=== PATIENT | female | born 1970 | race Caucasian/White ===

== ENCOUNTER → 2017-03-19 | Outpatient (CLI) | payer BC ==
[2014-05-14 11:39] VITALS: BP 146/73
[~2017-03-19] MED LIST: HYDR-2758 PO; LEVO50TA5 PO
--- NOTE | 2017-03-19 12:12 | RAD ---
DATE: 03/19/2017 EXAM: DIGITAL SCREEN BILAT W/CAD HISTORY: Screening COMPARISON: One year earlier This study was interpreted with the benefit of Computerized Aided Detection (CAD). FINDINGS: Breast Density: FATTY The Breast Parenchyma is primarily fatty replaced. Breast parenchyma level density A.. There has not been a significant change in the appearance of the breasts. Occasional intramammary lymph nodes are noted similar to an examination 01/20/2013. IMPRESSION: Benign findings BI-RADS CATEGORY: 2 BENIGN FINDING(S) RECOMMENDED FOLLOW-UP: 12M 12 MONTH FOLLOW-UP PQRS compliance statement: Patient information was entered into a reminder system with a target due date 03/19/2018 for the next mammogram. Mammography is a sensitive method for finding small breast cancers, but it does not detect them all and is not a substitute for careful clinical examination. A negative mammogram does not negate a clinically suspicious finding and should not result in delay in biopsying a clinically suspicious abnormality. "Our facility is accredited by the [employer] Mammography Program."
== END | disposition home or self-care (01) ==
LOC: MAMMO 10:00
PROVIDERS: ATTEND Internal Medicine
DX: Z12.31 Encounter for screening mammogram for malignant neoplasm of breast (principal)
CPT/HCPCS: G0202; 77067

== ENCOUNTER → 2017-06-11 | Day surgery (SDC) | payer BC ==
[~2017-06-11] MED LIST changes: +ATOR40TA59 PO; +HYDR12.58 PO; +HYDROmorphone 2 MG/ML VIAL IV PRN; +IV RINGERS,LACTATED 1000ML 1,000 ML IV SCH; +LIDOCAINE 1% PF 2 ML VIAL. ID PRN; +LIDOCAINE 2% PF Vial for OR 5 ML VIAL. ONE; +LISI10TA2 PO; +METF500T4 PO; +MIDAZOLAM HCL/PF 2 MG/2 ML VIAL. IV PRN; +MORPHINE SULFATE 2 MG/ML DISP.SYRIN. IV PRN; +ONDANSETRON PF 4 MG/2 ML VIAL. IV PRN; +PROCHLORPERAZINE 10 MG/2 ML VIAL. IV PRN; +PROPOFOL 20 ML IV ONE; +fentaNYL PF VIAL 100 MCG/2 ML VIAL IV PRN
--- NOTE | 2017-06-11 10:42 | PDOC1 ---
HISTORY & PHYSICAL H&P Fauzia RomeroMason 1970 06/03/2017 10:00 AM 08/30 [facility], [facility] OUR PATIENTS COME FIRST [address] [place] [address] Ph. [phone] Patient: Fauzia Romero Date of : 1970 Date: 06/03/2017 10:00 AM Visit Type: Consult This 46 year old female presents for Hemorrhoids. History of Present Illness: 1. Hemorrhoids Location is deep. The patient describes it as aching and burning. There are no aggravating factors. There are no relieving factors. Additional information : Patient has been having significant rectal pain and rectal bleeding. Has been having bleeding for a while. Had hemorrhoid surgery many years ago.. INTAKE COMMENTS: Intake Comments: Nurse Note: the pt is here today with complaints of severe bleeding hemorrhoids. The pt states that she has had to have them surgically removed around 15 years ago. PROBLEM LIST: Problem Description Onset Date Chronic Notes Hypothyroidism 06/11/2014 N Hypothyroidism (acquired) 04/08/2016 Morbid obesity with BMI of 40.0-44.9, adult 04/08/2016 Pure hypercholesterolemia 04/08/2016 PAST MEDICAL/SURGICAL HISTORY (Detailed) Disease/disorder Onset Date Management Date Comments Hysterectomy, vaginal Bilateral tubal ligation Diabetes type 2 Hyperlipidemia Hypertension Thyroid disease Medications (Active): Started Medication Directions Instruction Stopped 04/19/2017 atorvastatin 40 mg tablet take 1 tablet by oral route every day 04/19/2017 hydrochlorothiazide 25 mg tablet take 1 tablet by oral route every day new dose 05/21/2017 levothyroxine 75 mcg tablet take 1 tablet by oral route every day does not need this yet 06/03/2017 lidocaine 5 % topical ointment apply 1 by Rectal route apply to rectum twice a day 04/19/2017 lisinopril 10 mg tablet take 1 tablet by oral route every day 05/21/2017 metformin 500 mg tablet take 1 tablet by oral route 2 times every day with morning and evening meals new sig as of 05/21/17. does not need this yet Allergies: Ingredient Reaction Medication Name Comment NO KNOWN DRUG ALLERGIES REVIEW OF SYSTEMS System Neg/Pos Details Constitutional Negative Chills, fever, malaise and weight loss. ENMT Negative Sore throat. Eyes Negative Double vision. Respiratory Negative Dyspnea and wheezing. Cardio Negative Chest pain and irregular heartbeat/palpitations. GI Positive See HPI. GI Negative See HPI. Negative Dysuria and hematuria. Endocrine Negative Cold intolerance and heat intolerance. Psych Negative Anxiety. Integumentary Negative Hives and rash. MS Negative Joint pain. Samm/Lymph Negative Easy bleeding and easy bruising. Allergic/Immuno Negative Food allergies. VITAL SIGNS Time BP mm/Hg Pulse /min Resp /min Temp F Ht ft Ht in Ht cm Wt lb Wt kg BMI kg/ m2 BSA m2 O2 Sat% 9:58 AM 146/86 108 0.0 64.00 162.56 229.20 103.963 39.34 99 Time Measured by 9:58 AM Fauzia Sandhu PHYSICAL EXAM: Exam Findings Details Constitutional Normal Well developed. Eyes Normal Conjunctiva - Right: Normal, Left: Normal. Sclera - Right: Normal, Left: Normal. Nasopharynx Normal Lips/teeth/gums - Normal. Neck Exam Normal Inspection - Normal. Thyroid gland - Normal. Respiratory Normal Inspection - Normal. Auscultation - Normal. Cardiovascular Normal Regular rate and rhythm. No murmurs, gallops, or rubs. Vascular Normal Pulses - Carotids: Normal, Femoral: Normal, Dorsalis pedis: Normal. Abdomen Normal Inspection - Normal. Anterior palpation - No guarding. No abdominal tenderness. No hepatic enlargement. No splenic enlargement. No hernia. No Ascites. Skin Normal Inspection - Normal. Extremity Normal No edema. Psychiatric Normal Oriented to time, place, person, and situation. Appropriate mood and effect. Assessment/Plan # Detail Type Description 1. Assessment Rectal bleeding (K62.5). Patient Plan schedule colonoscopy at [facility] Plan Orders Further diagnostic evaluations ordered today include(s) Colonoscopy to be performed today. She is to schedule a follow-up visit with Andreas Jefferson MD upon completion of work-up 2. Assessment Rectal pain (K62.89). Patient Plan Lidocaine ointment Electronically signed by: Andreas Jefferson MD 06/03/2017 10:43 AM Document generated by: Andreas Jefferson 06/03/2017 10:43 AM Barry Enciso MD, Family Practice; Baljinder Montaño MD Internal Medicine; Lawrence Segovia MD, Internal Medicine; Su Jefferson MD Internal Medicine; Andreas Jefferson MD, Gastroenterology; Juan Ceballos MD, Rheumatology, S. Alex Gamez, Physical Medicine/Dwayne Laguna APRN ------ 06/11/17 Patient seen and examined. No change in H&P. ANDREAS JEFFERSON MD Jun 11, 2017 10:42
[2017-06-11 11:30] VITALS: BP 144/72
--- NOTE | 2017-06-14 15:08 | PATHOLOGY ---
PATHOLOGY REPORT * * * * * * * * FINAL DIAGNOSIS: Colon biopsy, distal ascending colon mass: - Tubular adenoma. COMMENT: There is no high grade dysplasia or evidence of malignancy. (JPM:mml; 06/14/2017) REPORT ELECTRONICALLY SIGNED BY: Viktor Novak M.D. DATE/TIME: 06/14/2017 15:06 * * * * * * * * GROSS PATHOLOGY: Received in formalin labeled "Blanca Castro, BX mass distal ascending colon," are 4 segments of wagner soft tissue measuring 1.5 x 0.6 x 0.3 cm in aggregate dimensions and ranging from 0.3 to 0.4 cm in maximum dimension. The specimen is submitted entirely in cassette A1. (TSD; 06/11/2017) INITIAL CPT CODE(S): A; 49678 Professional services performed [place] [facility] [place] [address] Technical services performed by [facility] at [address] [place] [address], [facility] [address] [address]. SPECIMEN(S) RECEIVED: A.Biopsy mass distal ascending colon CLINICAL HISTORY: Rectal bleeding; distal ascending colon mass PATIENT: JUNIE BLANCA Baxter /AGE: 12 1970 (Age: 46) PATIENT #: [id number] ALT CASE #: SPECIMEN COLLECTION DATE: 06/11/2017 SPECIMEN RECEIVED DATE: 06/11/2017 [facility] - [address] [place] [address] - PHONE: [phone] * * * END OF REPORT * * *
== END | disposition home or self-care (01) ==
LOC: ENDOS 09:11
PROVIDERS: ATTEND Internal Medicine Gastroenterology
DX: D12.2 Benign neoplasm of ascending colon (principal); E78.00 Pure hypercholesterolemia, unspecified; I10 Essential (primary) hypertension; E03.9 Hypothyroidism, unspecified; E11.9 Type 2 diabetes mellitus without complications; F41.9 Anxiety disorder, unspecified; Z86.39 Personal history of other endocrine, nutritional and metabolic disease; Z98.51 Tubal ligation status; Z87.39 Personal history of other diseases of the musculoskeletal system and connective tissue
CPT/HCPCS: 45380; 45381; 82962; J2704; 88305; J2001

== ENCOUNTER → 2018-04-06 | Outpatient (CLI) | payer BC ==
[2017-06-11 11:30] VITALS: BP 144/72
[~2018-04-06] MED LIST changes: -HYDROmorphone 2 MG/ML VIAL IV PRN; -IV RINGERS,LACTATED 1000ML 1,000 ML IV SCH; -LIDOCAINE 1% PF 2 ML VIAL. ID PRN; -LIDOCAINE 2% PF Vial for OR 5 ML VIAL. ONE; -METF500T4 PO; +METF500T5 PO; -MIDAZOLAM HCL/PF 2 MG/2 ML VIAL. IV PRN; -MORPHINE SULFATE 2 MG/ML DISP.SYRIN. IV PRN; -ONDANSETRON PF 4 MG/2 ML VIAL. IV PRN; -PROCHLORPERAZINE 10 MG/2 ML VIAL. IV PRN; -PROPOFOL 20 ML IV ONE; -fentaNYL PF VIAL 100 MCG/2 ML VIAL IV PRN
--- NOTE | 2018-04-06 14:39 | RAD ---
DATE: 04/06/2018 EXAM: DIGITAL SCREEN BILAT W/CAD HISTORY: Routine screening COMPARISON: 03/19/2017 This study was interpreted with the benefit of Computerized Aided Detection (CAD). The breast parenchyma is primarily fatty replaced. Breast parenchyma level density A. FINDINGS: No new or enlarging breast densities are seen. Minimal benign type calcification is present. No suspicious microcalcifications have developed. IMPRESSION: Stable mammograms without evidence of malignancy. BI-RADS CATEGORY: 2 BENIGN FINDING(S) RECOMMENDED FOLLOW-UP: 12M 12 MONTH FOLLOW-UP PQRS compliance statement: Patient information was entered into a reminder system with a target due date for the next mammogram. Mammography is a sensitive method for finding small breast cancers, but it does not detect them all and is not a substitute for careful clinical examination. A negative mammogram does not negate a clinically suspicious finding and should not result in delay in biopsying a clinically suspicious abnormality. "Our facility is accredited by the [employer] Mammography Program."
== END | disposition home or self-care (01) ==
LOC: MAMMO 13:43
PROVIDERS: ATTEND Internal Medicine
DX: Z12.31 Encounter for screening mammogram for malignant neoplasm of breast (principal); I10 Essential (primary) hypertension; E11.9 Type 2 diabetes mellitus without complications; E78.00 Pure hypercholesterolemia, unspecified; E03.9 Hypothyroidism, unspecified; Z86.39 Personal history of other endocrine, nutritional and metabolic disease; Z87.39 Personal history of other diseases of the musculoskeletal system and connective tissue
CPT/HCPCS: 77067

== ENCOUNTER 2018-12-05 06:56 | Day surgery (SDC) | payer BC ==
[~2018-12-05] VITALS: Ht 160 cm; Wt 93.0 kg
[~2018-12-05 06:56] MED LIST changes: +AMLO5TAB10 PO; -HYDR-2758 PO; +HYDR-2761 PO; +LEVO75TA5 PO; +LIDOCAINE 1%/EPI 1:100,000 20 ML VIAL. ONE; +LOSA-73 PO; +METF500T16 PO; -METF500T5 PO
[2018-12-05] MEDS ORDERED: fentaNYL PF VIAL 100 MCG/2 ML VIAL IV PRN (07:00)
[2018-12-05] MEDS ORDERED: IV RINGERS,LACTATED 1000ML 1,000 ML IV SCH (07:00)
[2018-12-05] MEDS ORDERED: MORPHINE SULFATE 2 MG/ML VIAL. IV PRN (07:00)
[2018-12-05] MEDS ORDERED: HYDROmorphone 2 MG/ML VIAL IV PRN (07:00)
[2018-12-05] MEDS ORDERED: ceFAZolin 2GM PREMIX 2 GM/50 ML BAG IV ONE (07:00)
[2018-12-05] MEDS ORDERED: ONDANSETRON PF 4 MG/2 ML VIAL. IV PRN (07:00)
[2018-12-05] MEDS ORDERED: PROCHLORPERAZINE 10 MG/2 ML VIAL. IV PRN (07:00)
[2018-12-05] MEDS ORDERED: LIDOCAINE 1% PF 2 ML VIAL. ID PRN (07:00)
[2018-12-05] MEDS ORDERED: PROPOFOL 20 ML IV ONE (07:21)
[2018-12-05] MEDS ORDERED: LIDOCAINE 2% PF 5 ML VIAL. ONE (07:21)
[2018-12-05] MEDS ORDERED: fentaNYL PF VIAL 100 MCG/2 ML VIAL ONE (07:22)
[2018-12-05] MEDS ORDERED: METHYLENE BLUE 1% 10 ML VIAL. ONE (07:42)
[2018-12-05] MEDS ORDERED: ROCURONIUM 50 MG/5 ML VIAL. ONE (07:56)
[2018-12-05] MEDS ORDERED: SUCCINYLCHOLINE 200 MG/10 ML VIAL. ONE (07:56)
[2018-12-05] MEDS ORDERED: METHYLENE BLUE 1% 10 ML VIAL. TP ONE (08:11)
[2018-12-05] MEDS ORDERED: DESFLURANE 31 TO 60 MINUTES IH ONE (08:28)
[2018-12-05] MEDS ORDERED: DEXAMETHASONE SOD PHOS 20 MG/5 ML VIAL. ONE (08:28)
[2018-12-05] MEDS ORDERED: ONDANSETRON PF 4 MG/2 ML VIAL. ONE (08:38)
[2018-12-05] MEDS ORDERED: GLYCOPYRROLATE 1 MG/5 ML VIAL. ONE (08:39)
[2018-12-05] MEDS ORDERED: NEOSTIGMINE METHYLSULFATE 5 MG/5 ML SYRINGE. ONE (08:39)
[2018-12-05] MEDS: fentaNYL PF VIAL 100 MCG/2 ML VIAL IV PRN ×2 (09:44→09:52)
--- NOTE | 2018-12-05 09:54 | PDOC4 ---
Operative Note Operative Note Operative Note: Preoperative Diagnosis: Perianal mass Postoperative Diagnosis: Perianal mass, perirectal fistula Procedure: Anal exam under anesthesia, excision of perianal mass, perirectal fistulotomy with placement of seton Surgeon: Rick Anesthesia: Gen. EBL: 10 mL Specimen: Perianal mass to pathology Drains: None Complications: None Indication: The patient is a 48-year-old female who presented with a perianal mass located between the 4 and 5 o'clock position while prone. She describes intermittent bouts of drainage and mild discomfort. The plan is to proceed with a full exam under anesthesia to better define and assess the possibility of a fistula versus simple mass. The details and risks of surgery were discussed with the patient. The risks include bleeding, infection, pain, incontinence, wound healing problems, recurrence, potential need for additional surgery or procedure. She understands and would like to proceed. Description: The patient was taken to the operating room and placed supine on the operating table. Gen. anesthesia was performed. She was then placed in prone jackknife. The perianal tissues were prepped with Betadine and draped in a standard surgical manner. Initial inspection showed the raised cluster forming a small mass near the 4 to 5 o'clock position. The internal anal canal and rectum were unremarkable with no palpable mass or tumor. There did appear to be a small orifice in the middle portion of this raised mass. Through this a small catheter connected to syringe was inserted and methylene blue dye was injected. This did show passage of blue dye to an internal anal gland located posteriorly. This demonstrated the presence of a fistula. With a scalpel the external mass was fully excised and sent to pathology using an elliptical incision. The suspected remaining fibrous tract was then cannulated with a probe. The probe extended without difficulty to the posteriorly located anal gland identified previously. The overlying skin was then opened using cautery. The proximal and distal portions of this fistulous tract were then opened widely with cautery. There was some involvement of sphincter muscles along the tract which we elected to encircle with a vessel loop providing a cutting seton. This was tightened into position with a 2-0 silk tie. Hemostasis was achieved with cautery. The tract was left open for drainage however some of the subcutaneous tissue at the site of the mass was approximated with 3-0 Vicryl to close that space. A sterile dressing was then applied and the procedure was concluded. The patient tolerated the procedure well was sent to recovery room in stable condition. At the end of the case all counts were correct. AVEL ASHFORD MD Dec 05, 2018 09:54
--- NOTE | 2018-12-05 09:55 | DISCH ---
DISCHARGE INSTRUCTIONS Condition on Discharge Condition on Discharge: Stable Activity After Discharge Activity Instructions for Disc: Activity as tolerated Diet after Discharge Diet after Discharge: Regular Wound Incision Care Wound/Incision Care: Other, see below (sitz baths BID and after stools) Follow-Up Follow up with: Dr Ashford in 1 week in the office, call for appt [phone] AVEL ASHFORD MD Dec 05, 2018 09:55
[2018-12-05] MEDS ORDERED: oxyCODONE/APAP 5/325 1 TAB TABLET PO ONE ×2 (10:00)
[2018-12-05 10:50] VITALS: BP 177/76
--- NOTE | 2018-12-06 15:06 | PATHOLOGY ---
[facility] Accession Number: [id number] . 01 Material submitted: . ANAL MASS . 01 Clinical history: . Fistula, anal mass . 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 LBQ/12/06/2018 . 02 Comment: There is no evidence of malignancy. (JPM/db; 12/06/2018) . 02 Electronically signed: . Viktor Novak MD, Pathologist NPI- [id number] . 01 Gross description: . The specimen is received in formalin, labeled "Fauzia Castro, anal mass", is an unoriented ellipse of wagner-brown skin measurin 2.7 x 1.5 cm with underlying indurated, subcutaneous tissue, excised to a depth of 1.5 cm. The skin surface has a mc-white, firm, cerebriform lesion measuring 2.0 x 1.0 x 0.4 cm. The specimen is inked black, serially sectioned to reveal a wagner-yellow, indurated cut surface with a 1.2 cm in length fistula tract that involves the skin lesion and black ink peripheral margin. The specimen is entirely submitted in A1-A3 with tips in A3. (SWS; 12/05/2018) SHS/SHS . 02 Pathologist provided ICD-10: K60.3, K62.89, L08.9 . 02 CPT . 278592 Specimen Comment: A courtesy copy of this report has been sent to Specimen Comment: [phone]. Specimen Comment: Report sent to Performed at: [address], [place], [place] [id number] MD Acosta Villar MD Phone: [phone] Performed at: [address] [id number] MD Viktor Novak MD Phone: [phone]
== END 2018-12-05 10:50 | disposition home or self-care (01) ==
LOC: SURG 06:56
PROVIDERS: ATTEND Surgery
DX: K60.3 Anal fistula (principal); K62.89 Other specified diseases of anus and rectum; L08.89 Other specified local infections of the skin and subcutaneous tissue; Z88.8 Allergy status to other drugs, medicaments and biological substances; E03.9 Hypothyroidism, unspecified; E11.9 Type 2 diabetes mellitus without complications; I10 Essential (primary) hypertension; E78.00 Pure hypercholesterolemia, unspecified; Z90.710 Acquired absence of both cervix and uterus; Z90.49 Acquired absence of other specified parts of digestive tract; Z98.890 Other specified postprocedural states; Z87.891 Personal history of nicotine dependence; E66.9 Obesity, unspecified; Z68.36 Body mass index [BMI] 36.0-36.9, adult; Z79.84 Long term (current) use of oral hypoglycemic drugs; Z79.899 Other long term (current) drug therapy
CPT/HCPCS: 46020; 46922; 82962; 88304; A7015; J0330; J0696; J0780; J1100; J2001; J2405; J2704; J2710; J3010; J3490; Q9968

== ENCOUNTER → 2019-05-22 | Outpatient (CLI) | payer BC ==
[~2019-05-22] MED LIST changes: -LIDOCAINE 1%/EPI 1:100,000 20 ML VIAL. ONE
--- NOTE | 2019-05-22 10:37 | RAD ---
DATE: 05/22/2019 EXAM: DIGITAL SCREEN BILAT W/CAD HISTORY: Routine screening COMPARISON: 03/13/2016, 03/19/2017, 04/06/2018 mammographic exams This study was interpreted with the benefit of Computerized Aided Detection (CAD). Breast Density: SCATTERED The breast parenchyma shows scattered fibroglandular densities. Breast parenchyma level B. FINDINGS: No suspicious calcifications, masses, or distortion. IMPRESSION: Stable BI-RADS CATEGORY: 2 BENIGN FINDING(S) RECOMMENDED FOLLOW-UP: 12M 12 MONTH FOLLOW-UP PQRS compliance statement: Patient information was entered into a reminder system with a target due date in one year for the next mammogram. Mammography is a sensitive method for finding small breast cancers, but it does not detect them all and is not a substitute for careful clinical examination. A negative mammogram does not negate a clinically suspicious finding and should not result in delay in biopsying a clinically suspicious abnormality. "Our facility is accredited by the [employer] Mammography Program."
== END | disposition home or self-care (01) ==
LOC: MAMMO 08:53
PROVIDERS: ATTEND Internal Medicine
DX: Z12.31 Encounter for screening mammogram for malignant neoplasm of breast (principal)
CPT/HCPCS: 77067

== ENCOUNTER → 2020-07-23 | Outpatient (CLI) | payer BC ==
[~2020-07-23] MED LIST changes: +AMLO-186 PO; -AMLO5TAB10 PO
--- NOTE | 2020-07-24 16:42 | RAD ---
DATE: 07/23/2020 10:25 AM EXAM: DIGITAL SCREEN BILAT W/CAD HISTORY: Screening COMPARISON: 05/22/2019 Bilateral full field craniocaudal and mediolateral oblique images were obtained using digital technique. FINDINGS: Breast Density: FATTY The Breast Parenchyma is primarily fatty replaced. Breast parenchyma level density A. No suspicious masses, microcalcifications or architectural distortion is present to suggest malignancy in either breast. The visualized axillae are unremarkable. IMPRESSION: No mammographic evidence of malignancy. BI-RADS CATEGORY: 1 NEGATIVE RECOMMENDED FOLLOW-UP: 12M 12 MONTH FOLLOW-UP Annual screening mammography is recommended, unless clinically indicated sooner based on symptoms or change in physical exam. PQRS compliance statement: Patient information was entered into a reminder system with a target due date for the next mammogram. Mammography is a sensitive method for finding small breast cancers, but it does not detect them all and is not a substitute for careful clinical examination. A negative mammogram does not negate a clinically suspicious finding and should not result in delay in biopsying a clinically suspicious abnormality. "Our facility is accredited by the [employer] Mammography Program."
== END ==
LOC: MAMMO 10:18
PROVIDERS: ATTEND Internal Medicine
DX: Z12.31 Encounter for screening mammogram for malignant neoplasm of breast (principal)
CPT/HCPCS: 77067

== ENCOUNTER → 2021-01-07 | Outpatient (CLI) | payer BC ==
[~2021-01-07] MED LIST changes: +IOHEXOL 240 MG/ML 50ML VIAL. PO ONE; +IOHEXOL 300 MG/ML 100ML VIAL. IV ONE; +LISI10TA16 PO; -LISI10TA2 PO
[2021-01-07 10:00] LABS: GFR 58.5
--- NOTE | 2021-01-07 13:55 | RAD ---
INDICATION: Reason: VENTRAL HERNIA / Spl. Instructions: IV OMNI 300 60 MLS AND PO OMNI 240 50 MLS / H istory: . COMPARISON: None. TECHNIQUE: Axial CT images obtained through the abdomen and pelvis with contrast. One or more of the following individualized dose reduction techniques were utilized for this examinat ion: 1. Automated exposure control; 2. Adjustment of the mA and/or kV according to patient size; 3 . Use of iterative reconstruction technique. FINDINGS: Calcified granuloma left lung base. Coronary artery calcific atherosclerosis. At least moderate calcific atherosclerosis. Low-density within the liver which can be seen with fatty infiltration. No intrahepatic bile duct dilation. No peripancreatic fluid collection. Splenic calcified granulomas. No hydronephrosis. Urinary bladder is partially distended. Left-sided colon is not very distended with apparent prominence of the wall but this could be from la ck of distention. Postoperative changes right side of the colon. No dilated loops of bowel to suggest obstruction. Small defect anterior abdominal wall measuring approximately 10 mm with overlying postoperative remy es to the subcutaneous soft tissues. There is also edema or fibrosis seen adjacent to this site withi n the anterior aspect of the abdominal cavity. Degenerative changes of the spine. Degenerative changes of the hips. IMPRESSION: * Small apparent defect at the anterior abdominal wall at the operative site with a small amount of fat seen extending through it. There is some haziness to the fat adjacent to this site which could be either from edema or fibrosis. Another possible cause includes fat necrosis. * Liver is low density which can be seen with fatty infiltration. * Left-sided colon is not very distended with some mild prominence the wall. Likely from lack of dis tention unless the patient is displaying symptoms of colitis. Electronically signed by: Titus Pearce MD (01/07/2021 1:52 PM) [id number]
== END ==
LOC: CT 08:53
PROVIDERS: ATTEND Surgery
DX: K43.9 Ventral hernia without obstruction or gangrene (principal); K76.89 Other specified diseases of liver
CPT/HCPCS: 36415; 74177; 82565; Q9966; Q9967

== ENCOUNTER 2021-03-10 06:03 | Inpatient (IN) | payer BC ==
[~2021-03-10] VITALS: Ht 160 cm; Wt 105.0 kg
[~2021-03-10 06:03] MED LIST changes: -IOHEXOL 240 MG/ML 50ML VIAL. PO ONE; -IOHEXOL 300 MG/ML 100ML VIAL. IV ONE; +PROCHLORPERAZINE 10 MG/2 ML VIAL. IVP PRN; +fentaNYL PF VIAL 100 MCG/2 ML VIAL IVP PRN
[2021-03-10 06:29] VITALS: BP 145/65
[2021-03-10] MEDS: IV RINGERS,LACTATED 1000ML 1,000 ML IV SCH ×2 (06:32→12:59)
[2021-03-10] MEDS ORDERED: FAMOTIDINE 20 MG/2 ML VIAL ONE (07:15)
[2021-03-10] MEDS ORDERED: DEXAMETHASONE SOD PHOS 4 MG/ML VIAL ONE (07:15)
[2021-03-10] MEDS ORDERED: ONDANSETRON PF 4 MG/2 ML VIAL. ONE (07:15)
[2021-03-10] MEDS ORDERED: SUCCINYLCHOLINE 200 MG/10 ML VIAL. ONE (07:15)
[2021-03-10] MEDS ORDERED: PROPOFOL 10 MG/ML (20ML) VIAL. IV ONE (07:15)
[2021-03-10] MEDS ORDERED: LIDOCAINE 1% PF 5 ML VIAL. ONE (07:15)
[2021-03-10] MEDS ORDERED: ROCURONIUM 50 MG/5 ML VIAL. ONE (07:16)
[2021-03-10] MEDS ORDERED: fentaNYL PF VIAL 100 MCG/2 ML VIAL ONE ×2 (07:17→08:25)
[2021-03-10] MEDS ORDERED: MIDAZOLAM HCL/PF 2 MG/2 ML VIAL. ONE (07:17)
[2021-03-10] MEDS ORDERED: NEOSTIGMINE 10 MG/10 ML VIAL. ONE (08:12)
[2021-03-10] MEDS ORDERED: GLYCOPYRROLATE 1 MG/5 ML VIAL. ONE (08:13)
[2021-03-10] MEDS ORDERED: PHENYLEPHRINE in 0.9% NACL PF 1 MG/10 ML SYRINGE. IV ONE (08:34)
[2021-03-10] MEDS ORDERED: 0.9 % SODIUM CHLORIDE 10 ML DISP.SYRIN. IV PRN (09:30)
[2021-03-10] MEDS ORDERED: oxyCODONE/APAP 5/325 1 TAB TABLET PO PRN (09:30)
[2021-03-10] MEDS ORDERED: HYDROmorphone 2 MG/ML VIAL IV PRN (09:30)
[2021-03-10] MEDS: IV NORMAL SALINE 1000ML BAG 1,000 ML IV SCH (09:30)
[2021-03-10] MEDS: IV 1/2 NORMAL SALINE 1,000 ML IV SCH ×2 (09:30→21:35)
[2021-03-10] MEDS ORDERED: NALOXONE 0.4 MG/ML VIAL. IV PRN (09:30)
[2021-03-10] MEDS ORDERED: ONDANSETRON PF 4 MG/2 ML VIAL. IVP PRN (09:30)
--- NOTE | 2021-03-10 09:33 | PDOC4 ---
Operative Note Operative Note Operative Note: Preoperative Diagnosis: Ventral hernia Postoperative Diagnosis: Same Procedure: Ventral hernia repair with mesh Surgeon: Rick Return Checker: Jena ORDOÑEZ Anesthesia: General EBL: 20 mL Specimen: None Drains: None Complications: None Indication: The patient is a 50-year-old female who underwent a prior laparoscopic colon resection which included a supraumbilical extraction incision. She developed a ventral hernia at this location. She was offered surgical repair. The risks of surgery were discussed which include bleeding, infection, recurrence, pain, anesthetic risk, potential need for additional surgery procedure. She understands and would like to proceed. Description: The patient was taken the operating room and placed supine in the operating table. General anesthesia was performed. The abdomen was prepped with ChloraPrep and draped with sterile towels, sheets, and an Ioban. An incision was made directly above the umbilicus excising the prior scar. Cautery dissection was carried down to the fascia. The fascial edges of the hernia defect were clarified. The patient appeared to have a [place] cheese-like appearance of the involved extraction incision fascia. Any of the bridging weakened fascial tissue in between the hernia defects were divided. A 14 x [address] mesh was selected for the repair. Mesh was placed subfascially as an inlay and provided wide coverage in all direction of the defect. The mesh was sutured to the fascia at the 12, 3, 6, 9:00 positions using 0 Prolene in a horizontal mattress fashion. Additional fixation was provided in between the sutures using an OPTi fix dissolvable tacking device. The fascial edges were closed over the mesh with 1 PDS. The deep subcutaneous tissue layers were approximated with 0 Vicryl closing off any of the space. The superficial subcutaneous layer was closed with 3-0 Vicryl. Skin was approximated with 4-0 Monocryl. Steri-Strips and a sterile dressing were applied. The patient tolerated procedure well and was sent to the recovery room in stable condition. At the end of the case all counts were correct. AVEL ASHFORD MD Mar 10, 2021 09:33
[2021-03-10] MEDS ORDERED: MORPHINE SULFATE 2 MG/ML INJ. ONE ×2 (09:47→10:03)
[2021-03-10] MEDS: MORPHINE SULFATE 2 MG/ML INJ. IVP PRN ×4 (09:50→10:35)
[2021-03-10] MEDS: LOSARTAN POTASSIUM 50 MG TABLET. PO SCH (10:00)
[2021-03-10] MEDS: LEVOTHYROXINE 75 MCG TABLET PO SCH (10:30)
[2021-03-10] MEDS ORDERED: HYDROmorphone 2 MG/ML VIAL ONE (10:39)
[2021-03-10] MEDS: HYDROmorphone 2 MG/ML VIAL IVP PRN ×4 (10:55→14:34)
[2021-03-10] MEDS ORDERED: PROCHLORPERAZINE 10 MG/2 ML VIAL. ONE (12:25)
[2021-03-10 16:20] VITALS: BP 159/78
[2021-03-10 17:00] VITALS: BP 157/76
[2021-03-10 18:00] VITALS: BP 144/67
[2021-03-10 19:00] VITALS: BP 135/70
[2021-03-10] MEDS: oxyCODONE/APAP 5/325 1 TAB TABLET PO PRN (21:35)
[2021-03-10 23:00] VITALS: BP 168/86
[2021-03-11] MEDS: LEVOTHYROXINE 75 MCG TABLET PO SCH (06:00)
[2021-03-11 07:00] VITALS: BP 144/66
[2021-03-11] MEDS: IV NORMAL SALINE 1000ML BAG 1,000 ML IV SCH (07:28)
[2021-03-11] MEDS: LOSARTAN POTASSIUM 50 MG TABLET. PO SCH (08:33)
--- NOTE | 2021-03-11 09:24 | PDOC ---
SURGICAL PROGRESS NOTE DATE: 03/11/21 TIME: 09:23 Subjective sore with movement no nausea no flatus yet Vital Signs Vital Signs Date Time Temp Pulse Resp B/P (MAP) Pulse Ox O2 Delivery O2 Flow Rate FiO2 03/11/21 08:33 86 144/66 03/11/21 07:00 97.7 18 96 Room Air 97.7 03/10/21 23:00 2.0 I&O Intake and Output 03/11/21 07:00 Intake Total 2135 ml Output Total 145 ml Balance 1990 ml Intake Oral 65 ml IV Total 2050 ml Other 20 ml Output Urine Total 125 ml Estimated Blood Loss 20 ml # Voids 3 General: Alert, Cooperative Abdomen: Soft, Other (binder in place) Assessment/Plan s/p VIH await bowel function increase activity Justicifation of Admission Dx: Justifications for Admission: Justification of Admission Dx: Yes Comments: hernia CONRADO AGUIAR VEGETABLE I FARMWORKER Mar 11, 2021 09:24
[2021-03-11] MEDS: IV 1/2 NORMAL SALINE 1,000 ML IV SCH ×2 (10:30→22:56)
[2021-03-11 11:00] VITALS: BP 120/59
[2021-03-11] MEDS: oxyCODONE/APAP 5/325 1 TAB TABLET PO PRN (13:23)
[2021-03-11 15:00] VITALS: BP 132/60
[2021-03-11 19:00] VITALS: BP 132/62
[2021-03-11 23:00] VITALS: BP 149/68
[2021-03-12 03:00] VITALS: BP 145/63
[2021-03-12] MEDS: LEVOTHYROXINE 75 MCG TABLET PO SCH (05:51)
[2021-03-12 07:00] VITALS: BP 146/79
[2021-03-12] MEDS: IV NORMAL SALINE 1000ML BAG 1,000 ML IV SCH (07:30)
[2021-03-12] MEDS: LOSARTAN POTASSIUM 50 MG TABLET. PO SCH (08:16)
[2021-03-12 11:00] VITALS: BP 155/82
[2021-03-12] MEDS: IV 1/2 NORMAL SALINE 1,000 ML IV SCH (11:30)
[2021-03-12 15:00] VITALS: BP 163/64
--- NOTE | 2021-03-12 17:33 | PDOC ---
SURGICAL PROGRESS NOTE DATE: 03/12/21 TIME: 17:31 Subjective Patient doing well, Passing flatus but no BM Vital Signs Vital Signs Date Time Temp Pulse Resp B/P (MAP) Pulse Ox O2 Delivery O2 Flow Rate FiO2 03/12/21 15:00 98.7 89 17 163/64 (97) 92 Room Air 98.7 03/12/21 03:00 2.0 I&O Intake and Output 03/12/21 07:00 Intake Total 900 ml Output Total 700 ml Balance 200 ml Intake Oral 900 ml Output Urine Total 700 ml # Voids 4 PATIENT HAS A MYLES: No General: Alert, Oriented X3, Cooperative, mild distress Abdomen: Normal bowel sounds, Soft, Other (wound c/d/i) Assessment/Plan Doing well, supportive care awaiting return of bowel function Justicifation of Admission Dx: Justifications for Admission: Justification of Admission Dx: Yes KASHMIR MACK MD Mar 12, 2021 17:33
[2021-03-12 19:00] VITALS: BP 142/65
[2021-03-12 23:00] VITALS: BP 147/58
[2021-03-13 03:00] VITALS: BP 144/72
[2021-03-13] MEDS: LEVOTHYROXINE 75 MCG TABLET PO SCH (05:41)
[2021-03-13 07:00] VITALS: BP 134/63
[2021-03-13] MEDS: IV NORMAL SALINE 1000ML BAG 1,000 ML IV SCH (09:30)
[2021-03-13] MEDS: LOSARTAN POTASSIUM 50 MG TABLET. PO SCH (09:39)
--- NOTE | 2021-03-13 09:39 | PDOC ---
SURGICAL PROGRESS NOTE DATE: 03/13/21 TIME: 09:38 Subjective tolerating clears no n/v + flatus, no stool yet ambulating, pain managed Vital Signs Vital Signs Date Time Temp Pulse Resp B/P (MAP) Pulse Ox O2 Delivery O2 Flow Rate FiO2 03/13/21 07:00 97.3 92 18 134/63 (86) 93 Room Air 97.3 03/12/21 20:00 2.0 I&O Intake and Output 03/13/21 07:00 Intake Total 780 ml Balance 780 ml Intake Oral 780 ml # Voids 3 General: Alert, Oriented X3, Cooperative Abdomen: Soft, Other (dressing dry) Problem List advance diet possible home tomorrow Justicifation of Admission Dx: Justifications for Admission: Justification of Admission Dx: Yes CONRADO AGUIAR MANGANESE WHEELER Mar 13, 2021 09:39
--- NOTE | 2021-03-13 10:10 | PDOC ---
SURGICAL PROGRESS NOTE DATE: 03/13/21 TIME: 10:09 Subjective tolerating clears + flatus, no stool pain managed ambulating Vital Signs Vital Signs Date Time Temp Pulse Resp B/P (MAP) Pulse Ox O2 Delivery O2 Flow Rate FiO2 03/13/21 09:40 92 134/63 03/13/21 07:00 97.3 18 93 Room Air 97.3 03/12/21 20:00 2.0 I&O Intake and Output 03/13/21 07:00 Intake Total 780 ml Balance 780 ml Intake Oral 780 ml # Voids 3 General: Alert, Oriented X3, Cooperative Abdomen: Soft, Other (dressing dry) Assessment/Plan advance diet plan for home tomorrow if tolerating diet Justicifation of Admission Dx: Justifications for Admission: Justification of Admission Dx: Yes CONRADO AGUIAR SALVAGE LABORER Mar 13, 2021 10:10
[2021-03-13] MEDS: POLYETHYLENE GLYCOL 3350 17 GM PACKET. PO SCH (10:16)
[2021-03-13 11:00] VITALS: BP 133/78
[2021-03-13] MEDS: IV 1/2 NORMAL SALINE 1,000 ML IV SCH ×2 (12:30)
[2021-03-13 15:00] VITALS: BP 138/63
[2021-03-13 19:00] VITALS: BP 134/57
[2021-03-13 23:00] VITALS: BP 156/54
[2021-03-14] MEDS: IV 1/2 NORMAL SALINE 1,000 ML IV SCH (01:00)
[2021-03-14 03:00] VITALS: BP 144/72
[2021-03-14] MEDS: LEVOTHYROXINE 75 MCG TABLET PO SCH (06:21)
[2021-03-14 07:00] VITALS: BP 152/70
[2021-03-14] MEDS: POLYETHYLENE GLYCOL 3350 17 GM PACKET. PO SCH (08:04)
[2021-03-14] MEDS: IV NORMAL SALINE 1000ML BAG 1,000 ML IV SCH (08:06)
[2021-03-14] MEDS: LOSARTAN POTASSIUM 50 MG TABLET. PO SCH (08:06)
--- NOTE | 2021-03-14 10:59 | PDOC ---
CONRADO AGUIAR APRN 03/14/21 1059: SURGICAL PROGRESS NOTE DATE: 03/14/21 TIME: 10:58 Subjective doing better tolerating diet + flatus, + bm Vital Signs Vital Signs Date Time Temp Pulse Resp B/P (MAP) Pulse Ox O2 Delivery O2 Flow Rate FiO2 03/14/21 08:06 93 152/70 03/14/21 08:00 Room Air 03/14/21 07:00 98.3 16 93 98.3 I&O Intake and Output 03/14/21 07:00 Intake Total 700 ml Balance 700 ml Intake Oral 700 ml # Voids 2 General: Alert, Oriented X3, Cooperative Abdomen: Soft, Other (incision c/d/i) Problem List s/p VIH dc home Justicifation of Admission Dx: Justifications for Admission: Justification of Admission Dx: Yes AVEL ASHFORD MD 03/14/21 1209: SURGICAL PROGRESS NOTE Assessment/Plan Agree with above CONRADO AGUIAR APRN Mar 14, 2021 10:59 AVEL ASHFORD MD Mar 14, 2021 12:09
[2021-03-14 11:00] VITALS: BP 149/60
[2021-03-14] MEDS ORDERED: OXYC1TAB15 PO (11:00)
--- NOTE | 2021-03-14 11:03 | DISCH ---
DISCHARGE INSTRUCTIONS Condition on Discharge Condition on Discharge: Stable Activity After Discharge Activity Instructions for Disc: Activity as tolerated Bathing Instructions: Shower-keep dressing dry Lifting Instructions after Dis: No heavy lifting, No pulling or pushing Exercise Instruction after Dis: Progress as tolerated Driving Instructions after Dis: Do not drive today Diet after Discharge Diet after Discharge: Regular Wound Incision Care Wound/Incision Care: Change dressing, May get incision wet Other wound/incision instructi: wear binder Contacting the DRMasno after DC Call your doctor for: Concerns you may have Follow-Up Follow up with: Dr Cabrera 2 weeks, call to schedule [phone] CONRADO AGUIAR FARM INSTRUCTOR Mar 14, 2021 11:03
--- NOTE | 2021-03-20 13:39 | PDOC3 ---
Discharge Summary Visit Information Date of Admission: Mar 10, 2021 Date of Discharge: Mar 14, 2021 Admitting Diagnosis: Ventral incisional hernia Final Diagnosis ventral incisional hernia Brief Hospital Course Allergies Allergies Coded Allergies Type Severity Reaction Last Updated Verified lisinopril Adverse Reaction Intermediate COUGH 03/06/21 Yes Brief Hospital Course Ms. Romero is a 50 old female who underwent Ventral hernia repair with mesh. Postoperatively bowel function slowly returned, tolerating diet, ambulating, and pain managed. Ready for discharge home Discharge Information Condition at Discharge: Stable Follow Up: Weeks (2) Disposition/Orders: D/C to Home Scheduled Amlodipine Besylate (Amlodipine Besylate) 5 Mg Tablet, 5 MG PO DAILY for HYPERTENSION, (Reported) Entered as Reported by: JAZMINE SCHULTE on 12/02/181538 Last Taken: Unknown Dose on 03/10/21 0500 Last Action: Continued on 03/10/2134 by AVEL ASHFORD Levothyroxine Sodium (Levothyroxine Sodium) 75 Mcg Tablet, 1 TAB PO DAILY for HYPOTHYROID, #30 Ref 5 (Reported) Entered as Reported by: JAZMINE SCHULTE on 12/02/181538 Last Taken: Unknown Dose on 03/10/21 0500 Last Action: Continued on 03/10/2134 by AVEL ASHFORD Losartan Potassium (Losartan Potassium) 50 Mg Tablet, 100 MG PO DAILY for HYPERTENSION, (Reported) Entered as Reported by: JAZMINE SCHULTE on 12/02/18 1540 Last Taken: Unknown Dose on 03/10/21 0500 Last Action: Continued on 03/10/2134 by AVEL ASHFORD Scheduled PRN Oxycodone/Apap 5-325 (Percocet 5-325 Mg Tablet ) 1 Each Tablet, 1 TAB PO PRN Q4HRS PRN for MILD PAIN, 1ST CHOICE, #15 Ref 0 Prescribed by: Frieda Rousseau on 03/14/21 1100 Justicifation of Admission Dx: Justifications for Admission: Justification of Admission Dx: Yes FRIEDA ROUSSEAU TIME ANALYSIS CLERK Mar 20, 2021 13:39
== END 2021-03-14 12:18 | disposition home or self-care (01) | DRG 354 ==
LOC: SURG 06:03 → 4 NORTH 09:29 → OBSVTOIN 03-12 14:45
PROVIDERS: ADMIT Surgery; ATTEND Surgery
PROC: 0WUF0JZ Supplement Abdominal Wall with Synthetic Substitute, Open Approach (ICD-10-PCS; principal; 2021-03-10 07:30)
DX: K43.9 Ventral hernia without obstruction or gangrene (principal); Z68.41 Body mass index [BMI] 40.0-44.9, adult; Z90.49 Acquired absence of other specified parts of digestive tract; Z88.8 Allergy status to other drugs, medicaments and biological substances; I10 Essential (primary) hypertension; E11.9 Type 2 diabetes mellitus without complications; E78.00 Pure hypercholesterolemia, unspecified; E03.9 Hypothyroidism, unspecified; E66.01 Morbid (severe) obesity due to excess calories
CPT/HCPCS: A4223; A4364; A4452; A4930; A6402; C1781; G0378; G0379; J0330; J0690; J0780; J1100; J1170; J2250; J2270; J2370; J2405; J2704; J2710; J3010; J3490

== ENCOUNTER → 2021-07-26 | Outpatient (CLI) | payer BC ==
[~2021-07-26] MED LIST changes: +OXYC1TAB15 PO; -PROCHLORPERAZINE 10 MG/2 ML VIAL. IVP PRN; -fentaNYL PF VIAL 100 MCG/2 ML VIAL IVP PRN
--- NOTE | 2021-07-28 11:33 | RAD ---
BILATERAL SCREENING MAMMOGRAM History: Routine screening. Comparison: Most recently on 07/23/2020. Technique: Routine 2D digital mammogram views were obtained bilaterally. Interpretation was assisted with the use of computer-aided detection. Findings: Breast Tissue Density A : The breasts are almost entirely fatty. There are no dominant masses, suspicious microcalcifications, or architectural distortion. IMPRESSION: No mammographic evidence of malignancy. Recommend routine screening mammography in one year. BI-RADS category 1: Negative. Patient information is entered into the reminder system with a target due date for the next screening mammogram. "Our facility is accredited by the [employer] Mammography Program." Electronically signed by: DONTA LOPEZ MD (07/28/2021 11:30 AM) [id number]
== END ==
LOC: MAMMO 09:04
PROVIDERS: ATTEND Family Medicine
DX: Z12.31 Encounter for screening mammogram for malignant neoplasm of breast (principal)
CPT/HCPCS: 77067